=== PATIENT | male | born 1945 | race Caucasian/White ===

== ENCOUNTER 2020-05-18 09:46 | Outpatient (RCR) | payer OTHER, SELFPAY | END 2020-05-18 23:59 | disposition home or self-care (01) | LOC: ANHAUDIO 09:46 | DX: Z46.1 Encounter for fitting and adjustment of hearing aid (principal) | CPT/HCPCS: 99199 ==

== ENCOUNTER 2021-12-18 14:30 | Outpatient (RCR) | payer OTHER, SELFPAY | END 2021-12-18 23:59 | disposition home or self-care (01) | LOC: ANHAUDIO 14:30 | PROVIDERS: PCP Otolaryngology; Visit Provider Otolaryngology | DX: Z46.1 Encounter for fitting and adjustment of hearing aid (principal) | CPT/HCPCS: 99199; V5014 ==